=== PATIENT | female | born 1990 | race Caucasian/White ===

== ENCOUNTER 2019-03-17 23:09 | Emergency (ER) | payer MEDICAID ==
[~2019-03-17] VITALS: Ht 165.1 cm; Wt 88.0 kg
[2019-03-18 03:02] LABS: CLARITY URINE CLEAR (CLEAR); COLOR URINE YELLOW (YELLOW); KETONES URINE NEGATIVE (NEGATIVE); LEUKOCYTE ESTERASE URINE NEGATIVE (NEGATIVE); NITRITE URINE NEGATIVE (NEGATIVE); OCCULT BLOOD URINE TRACE (NEGATIVE); PH URINE 6.5 (4.5-8.0); PROTEIN URINE NEGATIVE (NEGATIVE); UROBILINOGEN URINE 0.2 E.U./dL (0.2-1.0)
[2019-03-18 03:30] VITALS: BP 114/68
[2019-03-18] MEDS ORDERED: KETOROLAC 60MG/2ML VIAL IM ONE (03:30)
[2019-03-18] MEDS ORDERED: METOCLOPRAMIDE HCL 10MG TABLET PO ONE (03:30)
[2019-03-18] MEDS ORDERED: DIPHENHYDRAMINE 25MG CAPSULE PO ONE (03:30)
== END 2019-03-18 05:29 | disposition home or self-care (01) ==
LOC: ER 23:09
DX: G43.809 Other migraine, not intractable, without status migrainosus (principal); R10.31 Right lower quadrant pain; Z98.890 Other specified postprocedural states
CPT/HCPCS: 81003; 81025; 96372; 99283; J1885; J8597; Q0163